=== PATIENT | male | born 1980 | race African-American/Black ===

== ENCOUNTER 2019-07-31 11:00 | Emergency (ER) | payer MEDICAID, OTHER ==
[~2019-07-31] VITALS: Ht 185.4 cm; Wt 83.9 kg
[2019-07-31 11:24] VITALS: BP 126/94
[2019-07-31] MEDS ORDERED: LIDOCAINE 1% HCL (LOCAL ANESTH.) INJ 20ML MDV IJ ONE (14:15)
[2019-07-31] MEDS ORDERED: NEOMYCIN-BACITRACIN-POLYM UNITDOSE PKG TOP OINT TOP ONE (14:15)
== END 2019-07-31 14:41 | disposition home or self-care (01) ==
LOC: ER 11:00
DX: S61.412A Laceration without foreign body of left hand, initial encounter (principal); I10 Essential (primary) hypertension; F17.210 Nicotine dependence, cigarettes, uncomplicated; W25.XXXA Contact with sharp glass, initial encounter; Y93.89 Activity, other specified; Y92.59 Other trade areas as the place of occurrence of the external cause; Y99.8 Other external cause status
CPT/HCPCS: 12001; 99283; J2001